=== PATIENT | female | born 1995 | race Caucasian/White ===

== ENCOUNTER 2023-08-19 11:39 | Inpatient (IN) ==
[2023-08-19] MEDS ORDERED: LACTATED RINGER'S 1,000 ML IV PRN (12:12)
[2023-08-19] MEDS ORDERED: LIDOCAINE 1% LOCAL 20 ML VIAL INFIL PRN (12:12)
[2023-08-19] MEDS ORDERED: OXYTOCIN 30 UNITS/NSS 30 UNITS/500 ML BAG IV PRN (12:12)
--- NOTE | 2023-08-19 12:17 | History & Physical Report ---
Date of Service August 19, 2023 Assessment & Plan (1) Supervision of normal intrauterine in primigravida: Plan: Patient had spontaneous rupture early this morning perhaps 4:30 AM and was aileen at home she is group B strep negative speculum exam does confirm rupture of membranes her cervix is examined found to be close 50% her contractions are coming every 2 to 3 minutes of moderate intensity will admit and discuss management plan. She is aileen now if no change would consider augmentation History of Present Illness Primary Care Provider: NO PCP SHRAVAN Calculator Estimated Delivery Date Method Current WG Current Estimate 08/20/23 LMP (Certain) 39w 3d LMP: 11/13/22 : 1 Full term: 0 Premature: 0 Total Number of Induced Abortions: 0 Total Number of Spontaneous Abortions: 0 Ectopics: 0 Multiple births: 0 Number of Living Children: 0 and Delivery Plans Genital Herpes *Valtrex daily @ 36wks. calcifications in abdomen of fetus on Anatomy *MFM consult (06/01/23)-6mm echogenic area Growth US in 4wks. Allergies Allergy/AdvReac Type Severity Reaction Status Date / Time shellfish derived Allergy Intermediate ITCHY Verified 08/16/23 14:02 THROAT, HIVES Home Medications Medication Instructions Recorded Confirmed Type glucosamine sulf dipot 1 cap PO DAILY 06/03/20 08/16/23 History chlr,msm,chond 550 mg-C 30 mg-cindy 1 mg capsule (Glucosamine Chondroitin) vit 168-iron 27 mg-folic cap PO 01/03/23 08/16/23 History acid 800 mcg-omega3 235 mg capsule (One-A-Day -1) breast pump #1 ea 07/04/23 08/16/23 Rx valacyclovir 1 gram tablet 1,000 mg PO DAILY #30 tabs 08/02/23 08/16/23 Rx (Valtrex) Patient History Medical History No chronic diseases present Family History (Updated 03/06/22 @ 15:22 by Padmini You LPN) Denies family history of Ovarian cancer Prostate cancer Myocardial infarction Breast cancer Colorectal cancer Social History (Updated 01/03/23 @ 08:55 by Vanesa Leyva) Smoking Status: Never smoker Do You Dip or Chew Tobacco: No; marital status: marital status details: Richard (32) [phone] Current Living Situation: Spouse Current Living Situation Comment: lives with spouse, no pets current occupation: [employer] Feels Safe at Home: Yes Physical Exam Constitutional: WD/WN, vitals as above well developed and well nourished Respiratory: normal respiratory effort, lungs clear to auscultation normal respiratory effort Cardiovascular: RRR, no murmur, no edema Gastrointestinal (Abdomen): normal bowel sounds, soft, nontender, no hepatosplenomegaly Results & Data Vital Signs (Past 12 Hours) Vital Signs Pulse BP 08/19/23 11:51 68 179/102 H Coding Level of Care Code None Diagnoses Supervision of normal intrauterine in primigravida Z34.00
[2023-08-19 12:45] LABS: Hematocrit (blood only) 38.2 % (37.0-47.0); Hemoglobin 12.7 g/dl (12.0-16.0); Mean Corpuscular Hemoglobin 28.3 pg (25.0-34.0); Mean Corpuscular Hgb Conc 33.2 g/dL (32.0-36.0); Mean Corpuscular Volume 85.3 fL (80.0-100.0); Mean Platelet Volume 11.7 fL (9.4-12.4); Platelet Count 212 K/uL (130-400); RDW Coefficient of Variation 13.6 % (11.5-14.5); RDW Standard Deviation 41.8 fL (36.4-46.3); Red Blood Count 4.48 M/uL (4.20-5.40); White Blood Count 13.41 K/ul (4.8-10.8)
--- NOTE | 2023-08-19 14:16 | Obstetrical Progress Note ---
Date of Service August 19, 2023 Subjective Patient does not wish any intervention or augmentation at this she is aileen every 2 to 3 minutes albeit they could be stronger she wishes minimal intervention and has a plan Results & Data Vital Signs (Past 12 Hours) Vital Signs Temp Pulse Resp BP 08/19/23 12:34 77 08/19/23 12:34 135/86 08/19/23 11:53 98.1 F 20 08/19/23 11:51 68 179/102 H PG Care Time/CCT Total # of Minutes Spent Total Time Spent with Patient: Total time spent is greater than 50% in coordination of care (as documented) at patient's floor/unit and/or counseling patient: Coding Level of Care Code None
[2023-08-19] MEDS: OXYTOCIN 30 UNITS/NSS 30 UNITS/500 ML BAG IV PRN (19:29)
--- NOTE | 2023-08-19 19:43 | Delivery Summary ---
Vaginal Delivery Summary Date of Service August 19, 2023 Vaginal Delivery Summary and 2nd Degree LAC Spontaneous vaginal delivery the patient was admitted with rupture membranes and contractions in the morning her membranes were ruptured at 4:30 AM she wished minimal intervention and this was our approach she did progressed to fully dilated without augmentation she was able to push although she decided to push on contractions she felt the urge to push and not on every contraction near the end there was some prolonged bradycardia and we encouraged her to push on every contraction and she did shortly thereafter she delivered the baby quite pushing the head was delivered initially the shoulders were transverse but I was able to get the right shoulder anterior and with gentle traction deliver the baby there was no nuchal cord baby was delivered easily without excessive force live vigorous male infant cord was cannot clamped after pulsations stopped and then cut placenta was removed after getting cord blood a second-degree tear was noted lidocaine was injected and this was then repaired in the usual fashion with 3-0 Vicryl sponge and instrument counts were correct after delivery of the placenta oxytocin was started uterine tone improved estimated blood loss 300 mL [facility] Vaginal Delivery Charge Delivery Type Details: and 2nd Degree LAC
[2023-08-19] MEDS ORDERED: ACETAMINOPHEN 325 MG TAB PO PRN (19:47)
[2023-08-19] MEDS ORDERED: HYDROCORTISONE ACETATE 25 MG SUPP PR PRN (19:47)
[2023-08-19] MEDS ORDERED: bisacodyL 10 MG SUPP PR PRN (19:47)
--- NOTE | 2023-08-19 20:36 | Obstetrical Progress Note ---
Date of Service August 19, 2023 Assessment & Plan Admission and Anticipated Discharge Date Admission Date: August 19, 2023 Subjective Note had a increased bleeding with some clots passed after delivery performed a bimanual exam and there were some clots in the lower uterine segment these were evacuated and with palpation on the abdomen the uterus was firm and 100 mcg of per rectum Cytotec were given as well and bleeding improved estimated additional 692 cc of blood by weight Results & Data Vital Signs (Past 12 Hours) Vital Signs Temp Pulse Resp BP 08/19/23 20:28 85 145/74 H 08/19/23 19:58 81 08/19/23 19:58 152/86 H 08/19/23 19:43 85 08/19/23 19:43 153/80 H 08/19/23 16:29 66 08/19/23 16:29 139/92 08/19/23 15:19 69 08/19/23 15:19 146/96 H 08/19/23 15:15 20 08/19/23 15:15 98.2 F 20 08/19/23 14:12 98.4 F 08/19/23 12:34 77 08/19/23 12:34 135/86 08/19/23 11:53 98.1 F 20 08/19/23 11:51 68 179/102 H PG Care Time/CCT Total # of Minutes Spent Total Time Spent with Patient: Total time spent is greater than 50% in coordination of care (as documented) at patient's floor/unit and/or counseling patient: Coding Level of Care Code None
[2023-08-19] MEDS: DOCUSATE SODIUM 100 MG CAP PO SCH (21:47)
[2023-08-19] MEDS: miSOPROStoL 200 MCG TAB PR ONE (21:48)
[2023-08-19] MEDS: DIPHTHER/TETAN/PERTUS Vaccine (Tdap, Adol/Adult) 0.5mL IM ONE (22:15)
[2023-08-19 22:52] LABS: Base Excess Cord Venous Blood -5.3 mEq/L (-7.7-1.9); Cord Venous Blood HCO3 21 mmol/L (18.4-26.8); Cord Venous Blood PCO2 44 mmHg (30.4-57.2); Cord Venous Blood PO2 30 mmHg (14.1-43.3); Cord Venous Blood pH 7.29 (7.20-7.44); O2 Saturation Cord Venous Bld < 60.0 % (<68)
[2023-08-20] MEDS: BENZOCAINE 20% SPRY 85 APPLN/85 GM CAN EXT PRN (01:15)
[2023-08-20] MEDS: IBUPROFEN 600 MG TAB PO PRN (03:18)
[2023-08-20 06:38] LABS: Hematocrit (blood only) 30.2 % (37.0-47.0); Hemoglobin 10.2 g/dl (12.0-16.0); Mean Corpuscular Hemoglobin 28.5 pg (25.0-34.0); Mean Corpuscular Hgb Conc 33.8 g/dL (32.0-36.0); Mean Corpuscular Volume 84.4 fL (80.0-100.0); Mean Platelet Volume 11.9 fL (9.4-12.4); Platelet Count 229 K/uL (130-400); RDW Coefficient of Variation 13.8 % (11.5-14.5); RDW Standard Deviation 42.4 fL (36.4-46.3); Red Blood Count 3.58 M/uL (4.20-5.40)
--- NOTE | 2023-08-20 07:36 | Obstetrical Progress Note ---
Date of Service <Addie Orozco MD - Last Filed: 08/20/23 07:36> August 20, 2023 Assessment & Plan <Addie Orozco MD - Last Filed: 08/20/23 07:36> (1) Encounter for assessment: Plan Patient with the above mentioned history and findings was evaluated at bedside and found awake, alert, oriented in all spheres, afebrile, and in no acute distress. Vital signs showed no fever and blood pressures remained stable. Her blood type is O pos. Serologies are negative for GBS and patient is Rubella immune. Delivery was complicated by PPH (700 cc). Hgb prior to delivery was 12.7 and Hgb this morning was 10.2. Patient not referring symptoms of anemia such as lightheadedness, dizziness, tachycardia, or palpitations. Overall, patient is doing well clinically and meeting the desired milestone for her course. Will continue routine pp course. If she remains stable, anticipate discharge tomorrow. All questions were answered. <Julian Hogan MD, FACOG - Last Filed: 08/21/23 07:52> (1) Encounter for assessment: Subjective <Addie Orozco MD - Last Filed: 08/20/23 07:36> Jennie is a 28 y/o female who is now PPD # 1 following at 39 4/7 weeks. Reports feeling well overall this morning. Refers mild abdominal cramping & 2-3/10 pain well managed on analgesics. Voiding spontaneously. Tolerating meals overnight and able to ambulate some. Has been passing gas but no bm yet. Some persistent lochia with some improvement this morning. . Constitutional: no fever, no chills or no sweats Denies shortness of breath or difficulty breathing Cardiovascular: no chest pain or no palpitations Breast: no breast pain Genitourinary (female): no dysuria Neurologic: no headache(s) Denies changes in vision Physical Exam <Addie Orozco MD - Last Filed: 08/20/23 07:36> General: Alert. Oriented to person, time, and place. Afebrile. No acute distress. Cardiac: Regular rate and rhythm, no murmurs/rubs/gallops. Respiratory: Clear to auscultation bilaterally a/p, no wheezes/rales/rhonchi. No increased work of breathing. Symmetrical chest rise. No respiratory distress. Abdomen: Soft, nontender, nondistended. Bowel sounds present. Uterus: Uterine fundus firm, tender, and palpable at umbilicus. Lower Extremities: Mild bilateral LE swelling. No deep calf pain. Ryanne's negative bilaterally. Psych: Euthymic affect. Mood and affect congruence. Regular speech rate and content. Results & Data <Addie Orozco MD - Last Filed: 08/20/23 07:36> Vital Signs (Past 12 Hours) Vital Signs Temp Pulse Pulse Resp BP BP Pulse Ox 08/20/23 03:15 37.0 C 90 18 118/76 96 08/19/23 23:50 36.8 C 80 16 123/79 97 08/19/23 22:45 86 130/69 08/19/23 22:43 93 H 158/129 H 08/19/23 22:29 86 129/70 08/19/23 22:10 78 139/69 08/19/23 21:43 173 H 103/47 L 08/19/23 21:28 93 H 136/66 08/19/23 21:13 83 138/65 08/19/23 20:59 80 159/70 H 08/19/23 20:43 86 144/67 H 08/19/23 20:28 85 145/74 H 08/19/23 19:58 81 08/19/23 19:58 152/86 H 08/19/23 19:43 85 08/19/23 19:43 153/80 H O2 Del Method 08/20/23 03:15 Room Air 08/19/23 23:50 Room Air 08/19/23 22:45 08/19/23 22:43 08/19/23 22:29 08/19/23 22:10 08/19/23 21:43 08/19/23 21:28 08/19/23 21:13 08/19/23 20:59 08/19/23 20:43 08/19/23 20:28 08/19/23 19:58 08/19/23 19:58 08/19/23 19:43 08/19/23 19:43 Supervising Physician <Julian Hogan MD, FACOG - Last Filed: 08/21/23 07:52> Co-Signing Physician Notes Resident Physician Supervision Note: I was present with [email or web address] [Name of resident] during the history and exam. I discussed the case with the resident and agree with the findings and plan as documented in the note. Any exceptions or clarifications are listed here: [None] Documented By: Julian Hogan MD, FACOG
[2023-08-20] MEDS: PRENATAL VITAMIN 1 TAB PO SCH (08:16)
[2023-08-20] MEDS: bisacodyL 5 MG TABEC PO SCH (19:31)
--- NOTE | 2023-08-21 07:09 | Obstetrical Progress Note ---
Date of Service <Addie Orozco MD - Last Filed: 08/21/23 07:09> August 21, 2023 Assessment & Plan <Addie Orozco MD - Last Filed: 08/21/23 07:09> (1) Encounter for assessment: Plan Patient with the above mentioned history and findings was evaluated at bedside and found awake, alert, oriented in all spheres, afebrile, and in no acute distress. Vital signs showed no fever and blood pressures remained stable. Her blood type is O pos. Serologies are negative for GBS and patient is Rubella immune. Overall, patient is doing well clinically and meeting the desired milestone for her course. Therefore, will discharge patient today. Patient was counselled on discharge instructions. She is to make an appointment with her OB for 6 weeks after discharge for follow up evaluation. All questions were answered. <Chanel Torres DO - Last Filed: 08/21/23 08:36> (1) Encounter for assessment: Subjective <Addie Orozco MD - Last Filed: 08/21/23 07:09> Jennie is a 28 y/o female who is now PPD # 2 following at 39 4/7 weeks. Reports feeling well overall this morning. Refers mild abdominal cramping & 2/10 pain well managed on analgesics. Voiding spontaneously. Tolerating meals overnight and able to ambulate some. Has been passing gas and has had bm. Some persistent lochia with some improvement this morning. . Constitutional: no fever, no chills or no sweats Denies shortness of breath or difficulty breathing Cardiovascular: no chest pain or no palpitations Breast: no breast pain Genitourinary (female): no dysuria Neurologic: no headache(s) Denies changes in vision Physical Exam <Addie Orozco MD - Last Filed: 08/21/23 07:09> General: Alert. Oriented to person, time, and place. Afebrile. No acute distress. Cardiac: Regular rate and rhythm, no murmurs/rubs/gallops. Respiratory: Clear to auscultation bilaterally a/p, no wheezes/rales/rhonchi. No increased work of breathing. Symmetrical chest rise. No respiratory distress. Abdomen: Soft, nontender, nondistended. Bowel sounds present. Uterus: Uterine fundus firm, tender, and palpable below umbilicus. Lower Extremities: Mild bilateral LE swelling. No deep calf pain. Ryanne's negative bilaterally. Psych: Euthymic affect. Mood and affect congruence. Regular speech rate and content. Results & Data <Addie Orozco MD - Last Filed: 08/21/23 07:09> Vital Signs (Past 12 Hours) Vital Signs Temp Pulse Resp BP O2 Del Method 08/20/23 23:24 36.5 C 75 14 125/76 Room Air 08/20/23 19:35 36.8 C 76 16 124/68 Room Air Supervising Physician <Chanel Torres DO - Last Filed: 08/21/23 08:36> Co-Signing Physician Notes Resident Physician Supervision Note: I was present with Dr. Orozco during the history and exam. I discussed the case with the resident and agree with the findings and plan as documented in the note. Any exceptions or clarifications are listed here: PPD#2 doing well, reviewed instructions. Followup in office 6w PP. Documented By: Chanel Torres DO
== END 2023-08-21 14:30 | disposition home or self-care (01) | DRG 806 ==
LOC: OPB 11:39 → 4S1 11:42 → 4E2 23:20
DX: O70.1 Second degree perineal laceration during delivery; A60.09 Herpesviral infection of other urogenital tract; O98.32 Other infections with a predominantly sexual mode of transmission complicating childbirth; Z91.013 Allergy to seafood; Z37.0 Single live birth; Z3A.39 39 weeks gestation of pregnancy; Z79.899 Other long term (current) drug therapy; O42.02 Full-term premature rupture of membranes, onset of labor within 24 hours of rupture